=== PATIENT | female | born 1975 | race Caucasian/White ===

== ENCOUNTER 2021-02-04 20:10 | Emergency (ER) | payer SELFPAY | END 2021-02-04 20:24 | disposition left against medical advice (07) | LOC: FER 20:10 | DX: K03.81 Cracked tooth (principal); Z53.8 Procedure and treatment not carried out for other reasons ==

== ENCOUNTER 2021-02-09 17:36 | Emergency (ER) | payer SELFPAY ==
[2021-02-09] MEDS ORDERED: NORCO 5-325 TA1 EACH PO (18:31)
[2021-02-09] MEDS ORDERED: AMOXICILLIN500 M2 PO (18:33)
== END 2021-02-09 18:37 | disposition home or self-care (01) ==
LOC: FER 17:36
DX: K03.81 Cracked tooth (principal)
CPT/HCPCS: 99282